=== PATIENT | male | born 1995 | race Caucasian/White ===

== ENCOUNTER 2020-09-26 13:50 | Outpatient (REF) | payer OTHER, SELFPAY ==
--- NOTE | 2020-09-26 14:44 | MHC.AU.P13 ---
Hearing Instrument Maintenance/earmold impressions Date of Visit: 09/26/20 Right Ear: Cycle Counter: Phonak Model: WILLIE M70-SP Serial Number: [id number] Repair Warranty: 11/27/22 Loss and Damage Warranty: 11/27/22 Battery Size: 13 Color: SILVER Type of Mold: CANAL SHELL Left Ear: Cycle Counter: Phonak Model: WILLIE V50-SP Serial Number: [id number] RepairWarranty: 08/05/20 Loss and Damage Warranty: Color: ANDREW Type of Mold: CANAL SHELL Follow-Up Summary: Patient here for tubing change. Changed both tubings, however, left has tear - both aids amplifying clearly. Randell Schneider took earmold impressions without complication. Getting set of earmolds as these are now over two years old. Recommendations: Recommendations: Patient will be contacted when materials have arrived. Signature: Provider: LILIA Obrien-
== END 2020-09-26 13:51 | disposition home or self-care (01) ==
LOC: HO.HAP 13:50
PROVIDERS: Visit Provider Pediatrics
DX: Z46.1 Encounter for fitting and adjustment of hearing aid (principal)
CPT/HCPCS: 99499; V5275

== ENCOUNTER 2020-10-11 09:37 | Outpatient (REF) | payer OTHER, SELFPAY | END 2020-10-11 09:38 | disposition home or self-care (01) | LOC: HO.HAP 09:37 | PROVIDERS: Visit Provider Pediatrics | DX: Z46.1 Encounter for fitting and adjustment of hearing aid (principal); H90.3 Sensorineural hearing loss, bilateral | CPT/HCPCS: V5264 ==

== ENCOUNTER 2021-01-03 10:00 | Outpatient (REF) | payer OTHER, SELFPAY ==
--- NOTE | 2021-01-03 10:23 | MHC.AU.P13 ---
Hearing Instrument Problem Date of Visit: 01/03/21 Right Ear: Distribution Associate: Phonak Model: WILLIE M70-SP Serial Number: [id number] Repair Warranty: 11/27/22 Loss and Damage Warranty: 11/27/22 Battery Size: 13 Color: SILVER Type of Mold: CANAL SHELL Dispensed By: [facility] Date of Fittin09/06/19 Left Ear: Distribution Associate: Phonak Model: WILLIE V50-SP Serial Number: [id number] Repair Warranty: 08/05/20 Loss and Damage Warranty: Color: ANDREW Type of Mold: CANAL SHELL Dispensed By: [facility] Date of Fittin04/08/17 Follow-Up Summary: Patient brought in left hearing aid - earhook broke - Cleaned aid, retubed earmold, replaced earhook - amplifying clearly. Patient due for new hearing aid on this side Mar 2022. Recommendations: Recommendations: Hearing instrument follow-up or maintenance as needed. Signature: Provider: BERNA Obrien
== END 2021-01-03 10:01 | disposition home or self-care (01) ==
LOC: HO.HAP 10:00
PROVIDERS: Visit Provider Pediatrics
DX: Z46.1 Encounter for fitting and adjustment of hearing aid (principal); H90.3 Sensorineural hearing loss, bilateral
CPT/HCPCS: V5266

== ENCOUNTER 2021-02-21 14:13 | Outpatient (REF) | payer OTHER, SELFPAY | END 2021-02-21 14:14 | disposition home or self-care (01) | LOC: HO.HAP 14:13 | PROVIDERS: Visit Provider Pediatrics | DX: Z13.89 Encounter for screening for other disorder (principal) ==

== ENCOUNTER 2021-05-24 14:37 | Outpatient (REF) | payer SELFPAY | END 2021-05-24 14:38 | disposition home or self-care (01) | LOC: HO.HAP 14:37 | PROVIDERS: Visit Provider Pediatrics | DX: Z46.1 Encounter for fitting and adjustment of hearing aid (principal); H90.3 Sensorineural hearing loss, bilateral | CPT/HCPCS: 92593 ==

== ENCOUNTER 2021-12-26 14:35 | Outpatient (REF) | payer OTHER, SELFPAY | END 2021-12-26 14:36 | disposition home or self-care (01) | LOC: HO.HAP 14:35 | PROVIDERS: Visit Provider Pediatrics | DX: Z46.1 Encounter for fitting and adjustment of hearing aid (principal) | CPT/HCPCS: 92593; V5275 ==

== ENCOUNTER 2022-01-17 15:21 | Outpatient (REF) | payer MEDICAID, SELFPAY | END 2022-01-17 15:22 | disposition home or self-care (01) | LOC: HO.HAP 15:21 | PROVIDERS: Visit Provider Pediatrics | DX: Z46.1 Encounter for fitting and adjustment of hearing aid (principal); H90.3 Sensorineural hearing loss, bilateral | CPT/HCPCS: V5264 ==

== ENCOUNTER 2022-06-06 12:39 | Outpatient (REF) | payer OTHER, SELFPAY | END 2022-06-06 12:40 | disposition home or self-care (01) | LOC: HO.HAP 12:39 | PROVIDERS: Visit Provider Pediatrics | DX: Z46.1 Encounter for fitting and adjustment of hearing aid (principal); H90.3 Sensorineural hearing loss, bilateral | CPT/HCPCS: 92593; 99499 ==

== ENCOUNTER 2022-07-02 09:11 | Outpatient (REF) | payer OTHER, SELFPAY ==
--- NOTE | 2022-07-02 09:43 | MHC.AU.HFU ---
Hearing Instrument Follow-Up- Binaural Date of Visit: 07/02/22 Right Ear: Phonkali Martines M 70-SP Silver Ibanez Serial #[id number] Repair Warranty: 11/27/2022 Loss and Damage Warranty: 11/27/2022 Service Plan: 09/05/2020 Battery Size: 13 Tubing: tube lock Type of Mold: MICROSONIC CANAL SHELL Remake Warranty 07/16/2022 Dispensed By: [facility] Date of Fittin09/06/2019 Left Ear: Phonkali Martines Q 50-SP Toyin Red Serial #[id number] Repair Warranty: 08/05/2020 Loss and Damage Warranty: Battery Size: 13 Tubing: tube lock Type of Mold: MICROSONIC CANAL SHELL Remake Warranty 07/16/2022 Dispensed By: [facility] Date of Fittin04/08/2017 Follow-Up Summary: Cameron is here for the fitting of a remake right ear mold. Right ear mold fit well, no feedback noted. The patient was able to insert the ear mold with ease. No charge as the ear mold is a remake. Additional follow-up as needed. Diagnosis Code(s): Primary Diagnosis: H90.3 Bilateral Sensorineural Hearing Loss Signature: Provider: Randell Griffiths, CCC-A
== END 2022-07-02 09:12 | disposition home or self-care (01) ==
LOC: HO.HAP 09:11
PROVIDERS: Visit Provider Pediatrics
DX: Z13.89 Encounter for screening for other disorder (principal)

== ENCOUNTER 2022-12-03 11:33 | Outpatient (REF) | payer OTHER, SELFPAY | END 2022-12-03 11:34 | disposition home or self-care (01) | LOC: HO.HAP 11:33 | PROVIDERS: PCP Pediatrics; Visit Provider Pediatrics | DX: Z13.89 Encounter for screening for other disorder (principal) ==

== ENCOUNTER 2022-12-18 09:24 | Outpatient (REF) | payer OTHER, SELFPAY | END 2022-12-18 09:25 | disposition home or self-care (01) | LOC: HO.HAP 09:24 | PROVIDERS: Visit Provider Pediatrics | DX: Z46.1 Encounter for fitting and adjustment of hearing aid (principal); H90.3 Sensorineural hearing loss, bilateral | CPT/HCPCS: V5014 ==

== ENCOUNTER 2023-02-13 11:05 | Outpatient (REF) | payer MEDICAID, SELFPAY | END 2023-02-13 11:06 | disposition home or self-care (01) | LOC: HO.HAP 11:05 | PROVIDERS: Visit Provider Pediatrics | DX: Z46.1 Encounter for fitting and adjustment of hearing aid (principal); H90.3 Sensorineural hearing loss, bilateral | CPT/HCPCS: 92592 ==

== ENCOUNTER 2023-11-09 09:41 | Outpatient (REF) | payer MEDICAID, SELFPAY | END 2023-11-09 09:42 | disposition home or self-care (01) | LOC: HO.HAP 09:41 | PROVIDERS: Visit Provider Pediatrics | DX: Z13.89 Encounter for screening for other disorder (principal) ==

== ENCOUNTER 2023-11-10 15:34 | Outpatient (REF) | payer MEDICAID, SELFPAY | END 2023-11-10 15:35 | disposition home or self-care (01) | LOC: HO.HAP 15:34 | PROVIDERS: Visit Provider Pediatrics | DX: Z46.1 Encounter for fitting and adjustment of hearing aid (principal); H90.3 Sensorineural hearing loss, bilateral | CPT/HCPCS: 92593; 99499 ==

== ENCOUNTER 2025-04-06 13:51 | Outpatient (REF) | payer MEDICAID, SELFPAY ==
--- NOTE | 2025-04-06 14:43 | MHC.AU.HA3 ---
Hearing Instrument Follow-Up- Binaural Date of Visit: 04/06/25 Right Ear: Lowell, Model, Color, Serial Number: Jose Martines [id number]-SP SN: [id number] Color: Silver Ibanez [employer] Repair Warranty: 11/27/2022 [employer] Loss and Damage Warranty: 11/27/2022 [facility] Service Plan: 09/05/2020 Battery Size: 13 Earmold/Dome/CShell/SlimTip:Microsonic Canal shell Dispensed By: [facility] Date of Fittin09/06/2019 Left Ear: Lowell, Model, Color, Serial Number: Jose Martines V50-SP SN: [id number] Color: Toyin Red Manager [employer] Repair Warranty: 08/05/2020 [employer] Loss and Damage Warranty: [facility] Service Plan: Battery Size: 13 Earmold/Dome/CShell/SlimTip: Microsonic Canal shell Dispensed By: [facility] Date of Fittin04/08/2017 Follow-Up Summary: Both HAs dropped off, only right EM dropped off. Left MONTELONGO missing tone hook. Right EM slipped out of tubing, tone hook continually spinning. Cleaned HAs (2). Cleaned EM (1). Replaced tubing (1). Replaced both tone hooks (2). [id number] x6. Right EM vent is teared, still functional. Recommend return for JUAN if new EM desired. To front office for pecan picker. Recommendations: Hearing instrument follow-up or maintenance as needed. Please contact our clinic with any questions or concerns. Diagnosis Code(s): Primary Diagnosis: H90.3 Bilateral Sensorineural Hearing Loss Signature: Provider: Vivian Delaney, [facility]
== END 2025-04-06 13:52 | disposition home or self-care (01) ==
LOC: HO.HAP 13:51
PROVIDERS: Visit Provider Pediatrics
DX: Z46.1 Encounter for fitting and adjustment of hearing aid (principal); H90.3 Sensorineural hearing loss, bilateral
CPT/HCPCS: 92593; 99499

== ENCOUNTER 2025-05-10 13:56 | Outpatient (REF) | payer MEDICAID, SELFPAY | END 2025-05-10 13:57 | disposition home or self-care (01) | LOC: HO.HAP 13:56 | PROVIDERS: Visit Provider Pediatrics | DX: Z13.89 Encounter for screening for other disorder (principal) ==

== ENCOUNTER 2025-05-31 15:17 | Outpatient (REF) | payer MEDICAID, SELFPAY ==
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
== END 2025-05-31 15:18 | disposition home or self-care (01) ==
LOC: HO.HAP 15:17
PROVIDERS: Visit Provider Student in an Organized Health Care Education/Training Program
DX: Z46.1 Encounter for fitting and adjustment of hearing aid (principal); H90.3 Sensorineural hearing loss, bilateral
CPT/HCPCS: V5264